=== PATIENT | female | born 1985 | race Caucasian/White ===

== ENCOUNTER 2017-07-15 07:36 | Emergency (ER) | payer OTHER ==
[~2017-07-15] VITALS: Wt 90.0 kg
[~2017-07-15 07:36] MED LIST: AMIT10TA6 PO; HYDR25TA6 PO; LISI10TA2 PO
--- NOTE | 2017-07-15 08:55 | RADRPT ---
PROCEDURE: XR Ankle. CLINICAL INDICATION: Pain TECHNIQUE: AP, oblique and lateral views of the left ankle were performed. COMPARISON: None. FINDINGS: There is normal mineralization and alignment. No acute fracture or osseous lesion is identified. The joints are normal. There is marked soft tissue swelling in the left ankle. There is a tiny posterior calcaneal spur. RPTAT: AA IMPRESSION: Marked soft tissue swelling. Tiny posterior calcaneal spur. .Orlando Medeiros MD, MD Date Time Electronically viewed and signed by .Orlando Medeiros MD, MD on 07/15/2017 08:55 .S/
--- NOTE | 2017-07-15 08:57 | RADRPT ---
PROCEDURE: XR Foot. CLINICAL INDICATION: Pain TECHNIQUE: AP, lateral and oblique views of the left foot was obtained. The images were reviewed on a PACS workstation. COMPARISON: None. FINDINGS: The bones of the foot appear intact, with no evidence of fracture, dislocation, or subluxation. The joint spaces are preserved. The bone mineralization is normal. There is diffuse soft tissue swelling. There is an os naviculare. RPTAT: AA IMPRESSION: Diffuse soft tissue swelling. No acute fracture. .Orlando Medeiros MD, MD Date Time Electronically viewed and signed by .Orlando Medeiros MD, on 07/15/2017 08:57 .S/
[2017-07-15] MEDS ORDERED: NAPR-260 PO (09:05)
--- NOTE | 2017-07-15 12:31 | ERD ---
ER Documentation Chief Complaint Chief Complaint L ANKLEPAIN AND SWELLING FROM A FALL 1 WEEK AGO. NO DEFORMITY NOTED. HPI 32 yr old female complaining of ankle pain after twisting injury 1 week ago. Has not taken medication for symptoms. Able to ambulate without difficulty. Denies numbness or tingling to extremity. ROS All systems reviewed and are negative except as per history of present illness. Medications Home Meds Active Scripts Naproxen* (Naprosyn*) 500 Mg Tablet, 500 MG PO BID Y for PAIN AND/OR INFLAMMATION, #30 TAB Prov:CONNIE BENDER PA-C 07/15/17 Reported Medications Hydrochlorothiazide (Hydrochlorothiazide) 25 Mg Tablet, 25 MG PO DAILY 03/13/13 Amitriptyline Hcl* (Amitriptyline Hcl*) 10 Mg Tablet, 10 MG PO HS 03/13/13 Lisinopril* (Lisinopril*) 10 Mg Tablet, 10 MG PO DAILY 03/13/13 Allergies Allergies: Coded Allergies: No Known Allergy (Unverified , 03/13/13) PMhx/Soc History of Surgery: No (NONE) Anesthesia Reaction: No Hx Neurological Disorder: Yes (HEADACHES) Hx Respiratory Disorders: No Hx Cardiac Disorders: Yes (HTN) Hx Psychiatric Problems: No Hx Miscellaneous Medical Probl: No Hx Alcohol Use: No Hx Substance Use: No Hx Tobacco Use: No Physical Exam Vitals Vital Signs Date Time Temp Pulse Resp B/P Pulse Ox O2 Delivery O2 Flow Rate FiO2 07/15/17 07:40 98.0 98 20 150/87 99 Physical Exam GENERAL: The patient is well-appearing, well-nourished, in no acute distress CHEST: Clear to auscultation bilaterally. There are no rales, wheezes or rhonchi. HEART: Regular rate and rhythm. No murmurs, clicks, rubs or gallops. No S3 or S4. EXTREMITIES: TTP over ankle with mild swelling. No deformity NEUROLOGIC: Alert and oriented. Cranial nerves II through XII intact. Motor strength in all 4 extremities with 5 out of 5 strength. Sensation grossly intact. Normal speech and gait. Babinski negative. DTR 2+ throughout. SKIN: Ecchymosis to left ankle. No laceration or abrasion. Procedures/MDM DIAGNOSTIC IMAGING REPORT Patient: GEORGINA FERNANDES : 1985 Age: 32 Sex: F MR #: [id number] DOS: 07/15/17812 Ordering MD: MCKAY BENDER PA-C Location: [facility] Room/Bed: PROCEDURE: XR Ankle. CLINICAL INDICATION: Pain TECHNIQUE: AP, oblique and lateral views of the left ankle were performed. COMPARISON: None. FINDINGS: There is normal mineralization and alignment. No acute fracture or osseous lesion is identified. The joints are normal. There is marked soft tissue swelling in the left ankle. There is a tiny posterior calcaneal spur. RPTAT: AA IMPRESSION: Marked soft tissue swelling. Tiny posterior calcaneal spur. DIAGNOSTIC IMAGING REPORT Patient: GEORGINA FERNANDES : 1985 Age: 32 Sex: F MR #: [id number] DOS: 07/15/17812 Ordering MD: MCKAY BENDER PA-C Location: [facility] Room/Bed: PROCEDURE: XR Foot. CLINICAL INDICATION: Pain TECHNIQUE: AP, lateral and oblique views of the left foot was obtained. The images were reviewed on a PACS workstation. COMPARISON: None. FINDINGS: The bones of the foot appear intact, with no evidence of fracture, dislocation, or subluxation. The joint spaces are preserved. The bone mineralization is normal. There is diffuse soft tissue swelling. There is an os naviculare. RPTAT: AA IMPRESSION: Diffuse soft tissue swelling. No acute fracture. MDM: 32 yr old female complaining of ankle pain. I have low suspicion for acute fracture or dislocation. I have low suspicion for neuro deficit. Patient likely has ankle sprain which is causing pain. I have low suspicion for tendon or ligament injury. Patient was discharged with strict ER precuations and recommended to follow up with PMD in 1-2 days. Patient was discharged with strict ER precautions. Departure Diagnosis: Primary Impression: Ankle pain Condition: Stable Patient Instructions: Sprain, Ankle, With X-Ray Referrals: IVETTE CUNNINGHAM (PCP) Additional Instructions: FOLLOW UP WITH YOUR PRIMARY CARE PHYSICIAN TOMORROW.Return to this facility if you are not improving as expected. CONNIE BENDER PA-C Jul 15, 2017 12:31
== END 2017-07-15 09:17 | disposition home or self-care (01) ==
LOC: FTE 07:36
DX: M25.572 Pain in left ankle and joints of left foot (principal); I10 Essential (primary) hypertension
CPT/HCPCS: 73610; 73630; Z7502